=== PATIENT | female | born 1935 | race Caucasian/White ===

== ENCOUNTER 2016-10-10 14:36 | Observation (INO) | payer MEDICARE ==
[~2016-10-10] VITALS: Ht 160 cm; Wt 87.5 kg
--- NOTE | 2016-10-10 16:47 | DIAGNOSTIC IMAGING REPORT ---
PROCEDURE: XR CHEST 2 VIEW INDICATION: COUGH TECHNIQUE: PA and lateral view. COMPARISON: None. FINDINGS: Lungs are clear. Cardiovascular structures are normal. Bony thorax is unremarkable. IMPRESSION: 1. Negative chest.
--- NOTE | 2016-10-10 18:26 | DIAGNOSTIC IMAGING REPORT ---
PROCEDURE: CT HEAD WITHOUT CONTRAST INDICATION: HEADACHE, initial encounter TECHNIQUE: Noncontrast axial images with sagittal and coronal reformations. COMPARISON: None. FINDINGS: Mild cortical atrophy and normal ventricular system. Moderate white matter chronic ischemic changes. No evidence of acute intracranial process. Visualized mastoids and sinuses are clear. IMPRESSION: 1. No acute intracranial abnormality 2. Mild atrophy with moderate white matter chronic ischemic changes 3. Findings discussed with Flaco GUSTAFSON at 06:24 p.m., [facility] Time
--- NOTE | 2016-10-10 19:06 | ED ORDER SUMMARY ---
..... Patient: CHRISTINA JONES OrderSheet [facility] VisitID: [id number] [place] [address] 81y, F Registration Date/Time: 10/10/2016 ORDER SHEET Weight: 84.3 kg (stated) Allergies: Codeine GENERAL ORDERS: Chest 2V Urgent (14:47 10/10/2016 EKoroleva P.A.-C) (Ack 14:56 TBergley) (15:26 JSimbeck R.N.) Rapid Influenza Screen (Nasal Pharyngeal) (n) Urgent (14:48 10/10/2016 EKoroleva P.A.-C) (Ack 14:56 TBergley) (15:15 JSimbeck R.N.) UA-Culture if indicated Urgent (14:48 10/10/2016 EKoroleva P.A.-C) (Ack 14:56 TBergley) (17:12 omanelli R.N.) Cardiac Panel Stat (14:48 10/10/2016 EKoroleva P.A.-C) (Ack 14:56 TBergley) (15:15 JSimbeck R.N.) PTT Urgent (14:48 10/10/2016 EKoroleva P.A.-C) (Ack 14:56 TBergley) (15:15 JSimbeck R.N.) PT with INR Urgent (14:48 10/10/2016 EKoroleva P.A.-C) (Ack 14:56 TBergley) (15:15 JSimbeck R.N.) EKG - ER Stat (14:48 10/10/2016 EKoroleva P.A.-C) (Ack 14:56 TBergley) (15:11 JSimbeck R.N.) Vitals (16:31 10/10/2016 EKoroleva P.A.-C) (Ack 16:48 TBergley) (16:56 JSimbeck R.N.) Vitals (16:55 10/10/2016 EKoroleva P.A.-C) (16:56 JSimbeck R.N.) Vitals - Orthostatic (17:36 10/10/2016 EKoroleva P.A.-C) (Ack 17:47 TBergley) (18:13 GEORGEimbeck R.N.) CT Head wo Cont Urgent (17:46 10/10/2016 EKoroleva P.A.-C) (Ack 17:47 TBergley) (18:24 Fozia) PCT (Procalcitonin) Urgent (19:10 10/10/2016 EKoroleva P.A.-C) (Ack 19:13 TBergley) (20:12 TBergley) MEDICATION ORDERS: IV FLUIDS: IV NS : initial bolus 500 mL (1000 mL/hr), then 100 mL/hr for X1 (NOW); Ricardo (14:47 10/10/2016 EKoroleva P.A.-C) (15:26 GEORGEimbeck R.N.) Zofran IV 4 mg (NOW) (14:47 10/10/2016 EKoroleva P.A.-C) (15:26 GEORGEimbeck R.N.) ORDER SHEET NOTES: [Electronically signed by Consuelo BeASameer-Kimberly (21:49 10/10/2016)] [Electronically signed by Oliverio Guerra R.N. (04:15 10/11/2016)] [Electronically locked/signed by Oliverio Guerra R.N. (04:15 10/11/2016)]
--- NOTE | 2016-10-10 19:06 | ED ORDER SUMMARY ---
..... Patient: CHRISTINA JONES OrderSheet [facility] VisitID: [id number] [place] [address] 81y, F Registration Date/Time: 10/10/2016 ORDER SHEET Weight: 84.3 kg (stated) Allergies: Codeine GENERAL ORDERS: Chest 2V Urgent (14:47 10/10/2016 EKoroleva P.A.-C) (Ack 14:56 TBergley) (15:26 JSimbeck R.N.) Rapid Influenza Screen (Nasal Pharyngeal) (n) Urgent (14:48 10/10/2016 EKoroleva P.A.-C) (Ack 14:56 TBergley) (15:15 JSimbeck R.N.) UA-Culture if indicated Urgent (14:48 10/10/2016 EKoroleva P.A.-C) (Ack 14:56 TBergley) (17:12 omanelli R.N.) Cardiac Panel Stat (14:48 10/10/2016 EKoroleva P.A.-C) (Ack 14:56 TBergley) (15:15 JSimbeck R.N.) PTT Urgent (14:48 10/10/2016 EKoroleva P.A.-C) (Ack 14:56 TBergley) (15:15 JSimbeck R.N.) PT with INR Urgent (14:48 10/10/2016 EKoroleva P.A.-C) (Ack 14:56 TBergley) (15:15 JSimbeck R.N.) EKG - ER Stat (14:48 10/10/2016 EKoroleva P.A.-C) (Ack 14:56 TBergley) (15:11 JSimbeck R.N.) Vitals (16:31 10/10/2016 EKoroleva P.A.-C) (Ack 16:48 TBergley) (16:56 JSimbeck R.N.) Vitals (16:55 10/10/2016 EKoroleva P.A.-C) (16:56 JSimbeck R.N.) Vitals - Orthostatic (17:36 10/10/2016 EKoroleva P.A.-C) (Ack 17:47 TBergley) (18:13 GEORGEimbeck R.N.) CT Head wo Cont Urgent (17:46 10/10/2016 EKoroleva P.A.-C) (Ack 17:47 TBergley) (18:24 Fozia) PCT (Procalcitonin) Urgent (19:10 10/10/2016 EKoroleva P.A.-C) (Ack 19:13 TBergley) (20:12 TBergley) MEDICATION ORDERS: IV FLUIDS: IV NS : initial bolus 500 mL (1000 mL/hr), then 100 mL/hr for X1 (NOW); Ricardo (14:47 10/10/2016 EKoroleva P.A.-C) (15:26 GEORGEimbeck R.N.) Zofran IV 4 mg (NOW) (14:47 10/10/2016 EKoroleva P.A.-C) (15:26 GEORGEimbeck R.N.) ORDER SHEET NOTES: [Electronically signed by Consuelo BeASameer-Kimberly (21:49 10/10/2016)] [Electronically signed by Oliverio Guerra R.N. (04:15 10/11/2016)] [Electronically locked/signed by Oliverio Guerra R.N. (04:15 10/11/2016)]
--- NOTE | 2016-10-10 19:06 | ED NURSING NOTES ---
Clinical Report - Nurses [facility] [place] [address] 10/10/2016 14:35 Patient: CHRISTINA JONES TRIAGE Triage time 14:41. Acuity: LEVEL 3. 14:44 10/10/16. SEPSIS SCREEN: Sepsis Screen. Negative (no infection suspected/documented). CARLOS COMA SCORE: [place] Coma Scale: 14- eyes open spontaneously (4); best verbal response- disoriented (4); best motor response- obeys commands (6). (disoriented to time). --14:50 Rajesh Cruz R.N. 14:38 10/10/16. BP: 119/56. HR: 98. RR: 20. O2 saturation: 93% on room air. Temp: 98.8 F. Pain level now: 11/27. --14:50 Rajesh Cruz R.N. Chief Complaint: (NVD weakness). --21:18 Oliverio Guerra R.N. Weight: 84.3 kg stated. Height/Length: 63 inches Per Patient. BMI: 32.9. --14:46 Rajesh Cruz R.N. Medications Lisinopril Oral. Sertraline HCl Oral. --14:39 Rajesh Cruz R.N. Allergies Codeine. --14:39 Rajesh Cruz R.N. History Arrived by EMS. Historian: patient. Onset. (Onset yesterday: vomiting, fever, generalized pain, bilat seymour pain, poor PO intake, weakness.). ( Pt is a poor historian.). She has had weakness. Reports muscle aches. ( Headache, generalized back pain (chronic)). 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 PAST MEDICAL HX: ( Uses O2 @3L at night.). SOCIAL HX: Former smoker, end date 2006. ABUSE ASSESSMENT: No report of abuse. --14:50 Rajesh Cruz R.N. PROBLEMS: Contusion. COPD - Chronic Obstructive Pulmonary Disease. Hypertension. --14:39 Rajesh Cruz R.N. Interventions ID band on patient. To treatment room. --14:50 Rajesh Cruz R.N. NURSING PROGRESS NOTES EKG time: (1500). EKG was ordered, performed by a tech and shown to the ED physician. --15:02 Madai Richardson 15:10 10/10/2016 Site #1 started via IV in the left antecubital space with an 18g angiocath, with aseptic technique and good blood return; two attempts. Blood drawn: rainbow set. Labeled in the presence of the patient and sent to the lab. Saline lock flushed with 10 mL saline. --15:16 Rajesh Cruz R.N. 15:20 10/10/2016 Zofran (Ondansetron HCl) IVP 4 mg given over 1 minute(s) via site #1. Allergies verified and confirmed 5 rights. IV patency established. IV site checked: no pain, redness, or swelling. IV flushed thoroughly pre- and post-medication administration. IVP given by RN. --15:26 Rajesh Cruz R.N. 15:20 10/10/2016 Started bag #1 1000 mL IV Fluids IV NS (Saline); bolus of 500 mL over 30 minute(s) via site #1 via IV pump. Allergies verified and confirmed 5 rights. IV patency established. IV site checked: no pain, redness, or swelling. IV flushed thoroughly pre- and post-medication administration. --15:26 Rajesh Cruz R.N. 15:25. Patient transported to radiology by stretcher with tech. --15:34 Rajesh Cruz R.N. 16:50 10/10/16. BP: 132/82. HR: 101. RR: 20. O2 saturation: 93% on room air. Pain level now: 11/27. --16:55 Rajesh Cruz R.N. 16:50 10/10/2016 IV Fluids IV NS via IV site #1 Rate Changed: bag #1 decreased to 100 mL/hr via IV pump. IV patency established. IV site checked: no pain, redness, or swelling. IV flushed thoroughly. Confirmed 5 Rights (Bolus complete). --16:55 Rajesh Cruz R.N. 17:15. Head of bed elevated. Reassurance given. ( Assisted pt to BSC. she required max assist with 2 to go to the BSC and back to bed. Urine is cloudy. Pt also had a small BM. She c/o being dizzy when she sat up in bed prior to standing. Discussed with PA.). Call light placed in reach. Side rails up x 2. Bed placed in lowest position. Brakes of bed on. --17:21 Rajesh Cruz R.N. 17:20. ( Ice water provided to pt.). --17:24 Rajesh Cruz R.N. 17:59 10/10/16. BP: 135/70 (large adult cuff) taken on the right arm, while lying. HR: 98. --18:04 Madai Richardson 18:04 10/10/16. BP: 140/68 (large adult cuff) taken on the right arm, while sitting. --18:04 Madai Richardson 18:04 10/10/16. BP: 132/72 (large adult cuff) taken on the right arm, while standing. HR: 109. --18:05 Madai Richardson 18:05. Patient transported to CT by stretcher with tech. --18:11 Rajesh Cruz R.N. 17:50 10/10/2016 IV Fluids IV NS via IV site #1 Rate Changed: bag #1 decreased to 50 mL/hr via IV pump. IV patency established. IV site checked: no pain, redness, or swelling. IV flushed thoroughly. Confirmed 5 Rights (100ml/hr complete.). --18:13 Rajesh Cruz R.N. 18:25. Reassurance given. The patient reports no complaints and she is resting quietly. Patient returned from CT by stretcher with tech. Call light placed in reach. Side rails up x 2. Bed placed in lowest position. Brakes of bed on. --18:28 Rajesh Cruz R.N. ( Report received from SARAHY noel). --19:17 Oliverio Guerra R.N. 19:10. Care transferred and report given (to SARAHY Duron). --19:23 Rajesh Cruz R.N. DISPOSITION / DISCHARGE 20:56 10/10/16. BP: 132/73. HR: 89. RR: 16. O2 saturation: 94%. Temp: 98.4 F. Pain level now 0/10. --20:57 Oliverio Guerra R.N. Departure time: 2110. Report was given to a nurse via a phone call. Report included patient's care, treatment, medications, reviewed medication reconcilliation, and condition (including any recent changes or anticipated changes). All questions were answered. Report was acknowledged. Patient has no belongings. --21:12 Oliverio Guerra R.N. Locked/Released at 10/11/2016 4:15 by Oliverio Guerra R.N.
--- NOTE | 2016-10-10 19:06 | ED CLINICAL REPORT ---
Clinical Report - Physicians/Mid Levels [facility] [address] [place] [address] 10/10/2016 14:35 Patient: CHRISTINA JONES Time Seen: 14:49 Oct 10 2016. Arrived- By ambulance. Historian- EMS personnel. HISTORY OF PRESENT ILLNESS Chief Complaint: MUSCLE ACHES weakness/ fatigue. This started yesterday and is still present. The patient has had loss of appetite and weakness. Denies sleep problem. No muscle aches. (over the last 24 hours patient reports generalized weakness, emesis. Worsening of her chronic pain, back pain.). Similar symptoms previously: Recent medical care: Not recently seen/assessed. REVIEW OF SYSTEMS No fever, sore throat, sinus drainage, nausea or diarrhea. No difficulty with urination or headache. She has had chills. No difficulty with ambulation. All systems otherwise negative, except as recorded above. PAST HISTORY COPD, on home o2 at night. Lives in independent living. SOCIAL HISTORY Former smoker (quit 10 years prior). ADDITIONAL NOTES The nursing notes have been reviewed. PHYSICAL EXAM Vital Signs: 10/10/2016 14:38 BP: 119/56. HR: 98. RR: 20. O2 saturation: 93%. Temp: 98.8 F. Pain level now: 3/10. Appearance: Alert. Does not appear to be anxious. Eyes: Eyes normal inspection. ENT: Ears normal. Neck: Normal inspection. No carotid bruit or lymphadenopathy. CVS: Normal heart rate and rhythm. Heart sounds normal. No extra heart sounds. PMI not displaced laterally. Respiratory: No respiratory distress. Breath sounds normal. No decreased air movement. Abdomen: No visible injury. Soft. Skin: Skin warm. Normal skin color. Neuro: The patient is disoriented to time. Mood/affect normal. Speech normal. LABS, X-RAYS, AND EKG EKG: EKG time: (1500). No acute process. No acute ischemia. Normal EKG. Rate: 97. Normal QRS complex. Normal axis. Normal ST and T waves and QT. Prior EKG unavailable. The study has been interpreted contemporaneously. The EKG appears to be a good tracing. Chest X-ray: (IMPRESSION: 1. Negative chest. Electronically Final signed by:Peter Allen MD 10/10/2016 4:47:09 PM). CT Head: (IMPRESSION: 1. Negative chest. Electronically Final signed by:Peter Allen MD 10/10/2016 6:27:26 PM). Laboratory Tests: UA-Culture if indicated: (CONSUELO: 10/10/2016 17:05) ( [facility] 10/10/2016 17:38) Final results Test Result Flag Units (Reference) URINE COLOR YELLOW URINE APPEARANCE CLOUDY URINE GLUCOSE NEGATIVE (NEGATIVE) URINE BILIRUBIN NEGATIVE (NEGATIVE) URINE KETONE NEGATIVE (NEGATIVE) URINE SPECIFIC GRAVITY >= 1.030 (1.010-1.030) URINE PH 6.0 (5.0-8.0) URINE PROTEIN 2+ (NEGATIVE) URINE UROBILINOGEN 1.0 EU/dL (0.2-1.0) URINE NITRITE NEGATIVE (NEGATIVE) URINE BLOOD TRACE-INTACT (NEGATIVE) URINE LEUK ESTERASE NEGATIVE (NEGATIVE) URINE RBC 1-3 rbc/hpf (0-1) URINE WBC 3-5 wbc/hpf (0-1) URINE EPITHELIAL CELLS 3-5 EPI/hpf (0-5) URINE BACTERIA FEW (1+) (NONE SEEN) URINE COMMENT CULT NOT INDICATED AMORPHOUS CRYSTALS 2+URINE CULTURES ARE SET-UP BASED ON THE FOLLOWING CRITERIA:POSITIVE NITRITEPOSITIVE LEUKOCYTE ESTERASEGREATER THAN 10 WHITE BLOOD CELLSMODERATE (2+) OR GREATER BACTERIA CBC w Diff: (CONSUELO: 10/10/2016 15:10) ( [facility] 10/10/2016 16:09) Final results Test Result Flag Units (Reference) WHITE BLOOD COUNT 12.4 H K/uL (4.5-11.5) RED BLOOD COUNT 4.93 M/uL (4.00-5.20) HEMOGLOBIN 15.0 gm/dL (12.0-16.0) HEMATOCRIT 45.9 % (36.0-46.0) MEAN CELL VOLUME 93 fL (80-100) MEAN CORPUSCULAR HGB 30 pg (26-34) MEAN CORPUSCULAR HGB CONC 33 g/dL (31-37) RED CELL DISTRIBUTION WIDTH 14.1 % (11.6-14.8) PLATELET COUNT 190 K/uL (150-400) NEUTROPHIL % 85.7 H % (50-75) LYMPH % 5.7 L % (25-40) MONO % 8.5 % (3-14) EOSINOPHIL % 0.1 % (0-4) BASOPHIL % 0 % (0-2) PT with INR: (CONSUELO: 10/10/2016 15:10) ( [facility] 10/10/2016 16:14) Final results Test Result Flag Units (Reference) INR 1.1 (0.8-1.2) Low Intensity Therapy: INR 1.5-2.0 PT range 18.5-23.1Mod.Intensity Therapy: INR 2.0-3.0 PT range 23.1-31.5High Intensity Therapy: INR 2.5-3.5 PT range 27.4-35.5High Intensity Therapy 2: INR 3.0-4.0 PT range 31.5-39.3 APTT 33 SECONDS (24-34) CHEM 13 PANEL: (CONSUELO: 10/10/2016 15:10) ( [facility] 10/10/2016 16:23) Final results Test Result Flag Units (Reference) GLUCOSE 134 H mg/dL (70-110) BUN 31 H mg/dL (7-18) CREATININE 0.8 mg/dL (0.6-1.3) Estimated GFR >60 mL/min Estimated GFR- >60 mL/min Note: Persistent reduction over 3 months in eGFR<60 mL/min/1.73 m2 defines CKD. Patients with eGFR values>=60 mL/min/1.73 m2 may also have CKD if evidence ofpersistent proteinuria. Additional information may be foundat www.kidney.org. SODIUM 142 mmol/L (136-145) POTASSIUM 3.9 mmol/L (3.5-5.1) CHLORIDE 106 mmol/L (98-107) CARBON DIOXIDE 31 mmol/L (21-32) CALCIUM 8.9 mg/dL (8.5-10.1) TOTAL PROTEIN 6.8 g/dL (6.4-8.2) ALBUMIN 3.4 g/dL (3.3-5.0) BILIRUBIN, TOTAL 0.8 mg/dL (0.0-1.0) ALKALINE PHOSPHATASE 78 U/L (46-116) AST (SGOT) 16 U/L (15-37) ALT (SGPT) 22 U/L (12-78) MAGNESIUM 1.9 mg/dL (1.8-2.4) CPK 38 U/L (24-260) TROPONIN I <0.05 ng/mL (0.00-1.5) TROPONIN REFERENCE RANGE:<0.1 NEGATIVE0.1-1.5 INDETERMINANT>1.5 POSITIVE Rapid Influenza Screen: (CONSUELO: 10/10/2016 15:10) ( [facility] 10/10/2016 16:26) Final results SPECIMEN DESCRIPTION: N Test Result Flag Units (Reference) RAPID INFLUENZA SCREEN DATE: 10/10/16 INFLUENZA A: NEGATIVE SCREEN FOR INFLUENZA A INFLUENZA B: NEGATIVE SCREEN FOR INFLUENZA B . PROGRESS AND PROCEDURES Course of Care: It is-year-old female, who is a very poor historian, from independent living at [facility]. patient in the ER has minimal complaints. Requesting water, such was given to her after her workup, which included an EKG chest x-ray, CT head after she was disoriented to time. Such were unremarkable. CBC and CMP unremarkable. Troponin unremarkable. Urinalysis is unremarkable, although signs of dehydration obvious signs of infection. Influenza negative. No clear source of slight leukocytosis as noted the CBC. Patient with emesis prior to arrival as noted by medics, otherwise her abdomen is soft non tender. No diarrhea in the ER. No recent antibiotics or hospitalizations. Sheiis usually able to ambulate, however in they are unable to stand, and difficulty sitting despite assistance of 2 staff members. At this time she isunable to go home to [place], as she is without any assistance there, and after calling them they're unable to provide her with any further assistance through the weekend. Decision was made for admission, after discussion with Dr. Ellison. Patient case discussed with Dr. Piedra in, who saw the patient in the ER at 1920. Pt admitted. 10/10/2016 18:04 BP: 132/72. HR: 109. 10/10/2016 18:04 BP: 140/68. 10/10/2016 17:59 BP: 135/70. HR: 98. 10/10/2016 16:50 BP: 132/82. HR: 101. RR: 20. O2 saturation: 93%. Pain level now: 3/10. Patient is stable. Physical exam findings are improved. Symptoms better. Patient/family counseled. Disposition: Admitted. CLINICAL IMPRESSION Weakness Dehydration Emesis. (Electronically signed by Consuelo Be P.A.-C 10/10/2016 21:49)
--- NOTE | 2016-10-10 21:32 | HISTORY AND PHYSICAL ---
ADMITTED: 10/10/2016 CHIEF COMPLAINT: 1. Weakness HISTORY OF PRESENT ILLNESS: An 81-year-old female transported to [facility] Emergency Department by EMS after a second call to the facility for weakness, inability to stand or ambulate. This is a marked change in behavior as she was in her normal state of health prior to this, ambulating independently to and from the dining room, and socially interacting with others including [id number], who spoke to her on the night prior to admission when she was normal and conversant. She lives in assisted living. She has had some vomiting both in the night prior to admission and on the night of admission. The paramedics apparently witnessed the vomiting at the facility, though there has been no further vomiting since arrival in the emergency department. There has been history of weakness, chills, fever, and headaches. The patient denies all of these problems at this time. Currently, the patient admits to low back pain, which she says is chronic, but somewhat worse tonight. It did improve with change in position on the gurney in the emergency department. MEDICAL/SURGICAL HISTORY: Past medical history remarkable for chronic back pain, status post laminectomy; macular degeneration; chronic nephritis. History is obtained for this, as well as other history elements, both from the record obtained in the ED and also from the [id number], Jo Gillespie. The patient's brother is the power of product support analyst ; however, he is unable to talk on the phone and the [id number], therefore, relays history. Past surgical history: History of laminectomy, eye surgery, and hysterectomy. MEDICATIONS: 1. The patient is on lisinopril, dosage unknown. 2. An antidepressant. Apparently she had been on Sertraline. This was stopped approximately 1 month ago as it seemed to cause fatigue and confusion. She since that time has been on a new antidepressant but the dosage and name are unknown. Family will bring in the medications in the morning. ALLERGIES: 1. SOCIAL HISTORY: Retired, female living in assisted living at [facility]. 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 Smoking: None. Quit approximately 10 years ago. Alcohol: Positive, "but she won't admit to it." She apparently drank 1-2 drinks a day in the past, but recently with forgetfulness she sometimes drinks more when it is available to her. The family tries to limit the amount of alcohol she has access to in the assisted living facility, but "occasionally, infrequently , she drinks too much." The patient lives in assisted living at [facility]. The [id number] reports that Robert is "inundated" with viral syndrome causing weakness and vomiting. Apparently, one other member has been hospitalized for this. FAMILY HISTORY: Brother is 74 and healthy, except hard of hearing. Father at age 87 of unknown cause. Mother at age 67 of COPD. Some cousins have diabetes. There is no cancer in the family as far as Ms. Gillespie is aware. REVIEW OF SYSTEMS: Constitutional: The patient denies URI symptoms, sore throat , cough, or congestion. Neurological: She denies neurologic symptoms including headache (though she did complain of headache early in her ED visit). She also denies vision change or history of seizures. The patient does admit to forgetfulness and that is apparently primarily the reason why she now lives in assisted living. Respiratory: The patient cough, shortness of breath, or dyspnea on exertion. Cardiovascular: The patient denies chest pain, palpitations, or paroxysmal nocturnal dyspnea. Gastrointestinal: The patient does admit to having had some vomiting, although she does not recall vomiting today. She denies melena, diarrhea, constipation, or bright red blood per rectum. Genitourinary: The patient denies dysuria, hematuria, or frequency. PHYSICAL EXAMINATION: GENERAL: Well-developed, well-nourished female in no acute distress. VITAL SIGNS: Blood pressure 119/56, heart rate 98, respirations 20, SaO2 93% on room air, temperature 98.8. HEENT: Clear. NECK: Supple without adenopathy or thyromegaly. CHEST: Clear to auscultation and percussion. HEART: Regular rate and rhythm without murmur. ABDOMEN: Positive bowel sounds. Soft, nontender, without hepatosplenomegaly or masses. BACK: Straight without CVA tenderness. EXTREMITIES: Without cyanosis, clubbing, or edema. NEUROLOGIC: Grossly intact and symmetric with no focal signs. The patient's short-term memory is poor. GENITAL: Deferred. RECTAL: Deferred. BREASTS: Normal without masses. SKIN: Unremarkable. LAB/IMAGING: Urinalysis reveals specific gravity 1.030, pH 6.0, protein 2+, urobilinogen 1.0, leukocyte esterase negative, nitrite negative, urine blood trace intact. WBC 12.4, hemoglobin 15.0, hematocrit 45.9, platelets 190. INR 1.1. Glucose 134 , BUN 31, creatinine 0.8, sodium 142, potassium 3.9, chloride 106, bicarbonate 31. Total bilirubin 0.8, alkaline phosphatase 78, AST 16, ALT 22. Magnesium 1.9. CPK 38. Troponin less than 0.05. Rapid flu screen was obtained and is negative for influenza A or influenza B. Chest x-ray benign with no acute changes. CT of the head benign with no acute changes. EKG: Normal sinus rhythm without acute changes. IMPRESSION: 1. Viral syndrome, etiology unclear, probable viral gastroenteritis with mild dehydration. 2. Chronic low back pain, status post laminectomy. 3. History of hypertension, controlled. 4. History of depression, controlled. 5. History of nephritis. PLAN: Admit to [facility]. We will monitor vital signs and proceed with mild hydration and advance diet as tolerated. Anticipate gradual resolution. We will also check urine toxicology screen because of history of alcohol use. DNR status is ordered as this has been reported to be the patient's previously requested stance. This is confirmed by [id number] and brother through the [id number].
--- NOTE | 2016-10-10 21:32 | HISTORY AND PHYSICAL ---
ADMITTED: 10/10/2016 CHIEF COMPLAINT: 1. Weakness HISTORY OF PRESENT ILLNESS: An 81-year-old female transported to [facility] Emergency Department by EMS after a second call to the facility for weakness, inability to stand or ambulate. This is a marked change in behavior as she was in her normal state of health prior to this, ambulating independently to and from the dining room, and socially interacting with others including [id number], who spoke to her on the night prior to admission when she was normal and conversant. She lives in assisted living. She has had some vomiting both in the night prior to admission and on the night of admission. The paramedics apparently witnessed the vomiting at the facility, though there has been no further vomiting since arrival in the emergency department. There has been history of weakness, chills, fever, and headaches. The patient denies all of these problems at this time. Currently, the patient admits to low back pain, which she says is chronic, but somewhat worse tonight. It did improve with change in position on the gurney in the emergency department. MEDICAL/SURGICAL HISTORY: Past medical history remarkable for chronic back pain, status post laminectomy; macular degeneration; chronic nephritis. History is obtained for this, as well as other history elements, both from the record obtained in the ED and also from the [id number], Jo Gillespie. The patient's brother is the power of staff attorney ; however, he is unable to talk on the phone and the [id number], therefore, relays history. Past surgical history: History of laminectomy, eye surgery, and hysterectomy. MEDICATIONS: 1. The patient is on lisinopril, dosage unknown. 2. An antidepressant. Apparently she had been on Sertraline. This was stopped approximately 1 month ago as it seemed to cause fatigue and confusion. She since that time has been on a new antidepressant but the dosage and name are unknown. Family will bring in the medications in the morning. ALLERGIES: 1. SOCIAL HISTORY: Retired, female living in assisted living at [facility]. 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 Smoking: None. Quit approximately 10 years ago. Alcohol: Positive, "but she won't admit to it." She apparently drank 1-2 drinks a day in the past, but recently with forgetfulness she sometimes drinks more when it is available to her. The family tries to limit the amount of alcohol she has access to in the assisted living facility, but "occasionally, infrequently , she drinks too much." The patient lives in assisted living at [facility]. The rqrham-ik-yxo reports that Robert is "inundated" with viral syndrome causing weakness and vomiting. Apparently, one other member has been hospitalized for this. FAMILY HISTORY: Brother is 74 and healthy, except hard of hearing. Father at age 87 of unknown cause. Mother at age 67 of COPD. Some cousins have diabetes. There is no cancer in the family as far as Ms. Gillespie is aware. REVIEW OF SYSTEMS: Constitutional: The patient denies URI symptoms, sore throat , cough, or congestion. Neurological: She denies neurologic symptoms including headache (though she did complain of headache early in her ED visit). She also denies vision change or history of seizures. The patient does admit to forgetfulness and that is apparently primarily the reason why she now lives in assisted living. Respiratory: The patient cough, shortness of breath, or dyspnea on exertion. Cardiovascular: The patient denies chest pain, palpitations, or paroxysmal nocturnal dyspnea. Gastrointestinal: The patient does admit to having had some vomiting, although she does not recall vomiting today. She denies melena, diarrhea, constipation, or bright red blood per rectum. Genitourinary: The patient denies dysuria, hematuria, or frequency. PHYSICAL EXAMINATION: GENERAL: Well-developed, well-nourished female in no acute distress. VITAL SIGNS: Blood pressure 119/56, heart rate 98, respirations 20, SaO2 93% on room air, temperature 98.8. HEENT: Clear. NECK: Supple without adenopathy or thyromegaly. CHEST: Clear to auscultation and percussion. HEART: Regular rate and rhythm without murmur. ABDOMEN: Positive bowel sounds. Soft, nontender, without hepatosplenomegaly or masses. BACK: Straight without CVA tenderness. EXTREMITIES: Without cyanosis, clubbing, or edema. NEUROLOGIC: Grossly intact and symmetric with no focal signs. The patient's short-term memory is poor. GENITAL: Deferred. RECTAL: Deferred. BREASTS: Normal without masses. SKIN: Unremarkable. LAB/IMAGING: Urinalysis reveals specific gravity 1.030, pH 6.0, protein 2+, urobilinogen 1.0, leukocyte esterase negative, nitrite negative, urine blood trace intact. WBC 12.4, hemoglobin 15.0, hematocrit 45.9, platelets 190. INR 1.1. Glucose 134 , BUN 31, creatinine 0.8, sodium 142, potassium 3.9, chloride 106, bicarbonate 31. Total bilirubin 0.8, alkaline phosphatase 78, AST 16, ALT 22. Magnesium 1.9. CPK 38. Troponin less than 0.05. Rapid flu screen was obtained and is negative for influenza A or influenza B. Chest x-ray benign with no acute changes. CT of the head benign with no acute changes. EKG: Normal sinus rhythm without acute changes. IMPRESSION: 1. Viral syndrome, etiology unclear, probable viral gastroenteritis with mild dehydration. 2. Chronic low back pain, status post laminectomy. 3. History of hypertension, controlled. 4. History of depression, controlled. 5. History of nephritis. PLAN: Admit to [facility]. We will monitor vital signs and proceed with mild hydration and advance diet as tolerated. Anticipate gradual resolution. We will also check urine toxicology screen because of history of alcohol use. DNR status is ordered as this has been reported to be the patient's previously requested stance. This is confirmed by kuisbk-st-cei and brother through the rzfrks-zh-upd.
[2016-10-10 21:35] VITALS: BP 155/95
[2016-10-11 02:51] VITALS: BP 152/91
--- NOTE | 2016-10-11 04:16 | ED DISCHARGE INSTRUCTIONS ---
Patient: CHRISTINA JONES General Instructions [facility] VisitID: [id number] [address] [place] [address] 81y, F Registration Date/Time: 10/10/2016 Weakness Dehydration Emesis. (Electronically signed by Consuelo Be P.A.-C 10/10/2016 21:49)
--- NOTE | 2016-10-11 04:16 | ED MED RECONCILIATION SUMMARY ---
Patient: CHRISTINA JONES Medication Reconciliation Report [facility] VisitID: [id number] [address] [place] [address] 81y, F Registration Date/Time: 10/10/2016 Weight: 84.3 kg Height/Length: 63 in. BMI: 32.9 ALLERGIES: Codeine The patient's Home Medications are listed below: THE FOLLOWING MEDICATIONS NEED TO BE RECONCILED: Lisinopril Oral Sertraline HCl Oral The source(s) of the original Home Medication information: Not obtained. The following Medications were given to the patient in the Emergency Department: Zofran [IVP] IVP 4 mg, administered: 10/10/2016 3:20:00 PM IV NS IV Fluids bolus 500 mL over 30 minute(s), administered: 10/10/2016 3:20:00 PM The following Medications were prescribed to the patient: None.
--- NOTE | 2016-10-11 04:16 | ED MAR SUMMARY ---
..... Medication Administration Record [facility] [address] [place] [address] Patient: CHRISTINA JONES Visit ID: [id number] 81y, F Weight: 84.3 kg Height/Length: 63 in BMI: 32.9 ALLERGIES: Codeine Start 15:10/10/2016 Rajesh Cruz R.N. Medication Administered: IV NS (SALINE), Dose: IV Fluids, Bolus: 500 mL over 30 minute(s), Dispensed: 1000 mL bag, Site: #1 left AC. Medication Ordered: IV NS : initial bolus 500 mL (1000 mL/hr), then 100 mL/hr for X1 (NOW); Ricardo. Given 15:10/10/2016 Rajesh Cruz R.N. Medication Administered: ZOFRAN [IVP] (ONDANSETRON HCL), Dose: 4 mg IVP over 1 minute(s), Site: #1 left AC. Medication Ordered: Zofran IV 4 mg (NOW).
--- NOTE | 2016-10-11 04:16 | ED MAR SUMMARY ---
..... Medication Administration Record [facility] [address] [place] [address] Patient: CHRISTINA JONES Visit ID: [id number] 81y, F Weight: 84.3 kg Height/Length: 63 in BMI: 32.9 ALLERGIES: Codeine Start 15:10/10/2016 Rajesh Cruz R.N. Medication Administered: IV NS (SALINE), Dose: IV Fluids, Bolus: 500 mL over 30 minute(s), Dispensed: 1000 mL bag, Site: #1 left AC. Medication Ordered: IV NS : initial bolus 500 mL (1000 mL/hr), then 100 mL/hr for X1 (NOW); Ricardo. Given 15:10/10/2016 Rajesh Cruz R.N. Medication Administered: ZOFRAN [IVP] (ONDANSETRON HCL), Dose: 4 mg IVP over 1 minute(s), Site: #1 left AC. Medication Ordered: Zofran IV 4 mg (NOW).
--- NOTE | 2016-10-11 04:16 | ED DISCHARGE INSTRUCTIONS ---
Patient: CHRISTINA JONES General Instructions [facility] VisitID: [id number] [address] [place] [address] 81y, F Registration Date/Time: 10/10/2016 Weakness Dehydration Emesis. (Electronically signed by Consuelo Be P.A.-C 10/10/2016 21:49)
--- NOTE | 2016-10-11 04:16 | ED MED RECONCILIATION SUMMARY ---
Patient: CHRISTINA JONES Medication Reconciliation Report [facility] VisitID: [id number] [address] [place] [address] 81y, F Registration Date/Time: 10/10/2016 Weight: 84.3 kg Height/Length: 63 in. BMI: 32.9 ALLERGIES: Codeine The patient's Home Medications are listed below: THE FOLLOWING MEDICATIONS NEED TO BE RECONCILED: Lisinopril Oral Sertraline HCl Oral The source(s) of the original Home Medication information: Not obtained. The following Medications were given to the patient in the Emergency Department: Zofran [IVP] IVP 4 mg, administered: 10/10/2016 3:20:00 PM IV NS IV Fluids bolus 500 mL over 30 minute(s), administered: 10/10/2016 3:20:00 PM The following Medications were prescribed to the patient: None.
--- NOTE | 2016-10-11 07:45 | Progress Note ---
Subjective General Note Date: October 11, 2016 Admission Date: October 10, 2016 Hospital Day: 2 PCP: Mary JACKMAN Status: Observation Advanced Directive: NO CODE Room: 309-A Brief History: The patient is an 81-year-old white female with a significant past medical history of chronic back pain, macular degeneration, nephritis, hypertension, depression, who presented to [facility] emergency department secondary to a history of nausea, vomiting, and weakness. [facility] ER evaluation was consistent with probable viral gastroenteritis with associated nausea vomiting and dehydration causing weakness and inability to walk. Secondary to the above, the patient was admitted by Shawn Piedra M.D. for further evaluation and treatment. For other history present illness, past medical history, family history, social history, review of systems, and admission physical examination please see the patient's history and physical examination and ER visit note in the patient's medical record. Subjective: The patient states she is doing well today. No nausea or vomiting since admission. Taking clear liquids well without problems. He voices no complaints. Patient requests: None Medications and Allergies Medications Current Medications Sig/Kathie Start time Last Medication Dose Route Stop Time Status Admin Lisinopril 5 MG DAILY 10/11 0900 AC PO Pantoprazole Sodium 40 MG DAILY@0600 10/11 0600 AC IV Acetaminophen 1,000 MG Q6H PRN 10/10 2014 AC PO Dextrose/Sodium 1,000 ML ASDIRECTED 10/10 194 AC 10/10 Chloride/Electrolyt IV 2230 Allergies Coded Allergies: Codeine (Mild, ITCHY NOSE 10/10/16) Propoxyphene (From DARVON-N) (Severe, CATATONIC 10/10/16) Physical Exam Vital Signs / I&Os Vital Signs Date Time Temp Pulse Resp B/P Pulse O2 O2 Flow FiO2 Ox Delivery Rate 10/11 0251 98.2 87 16 152/91 100 Nasal 3.0 Cannula 10/10 2224 94 14 100 10/10 2150 Nasal 3.0 Cannula 10/10 2134 98.2 96 20 155/95 90 Room Air I&O 10/11 0000 10/10 1600 10/10 0800 Intake Total 100 Output Total 300 Balance -200 General Appearance Alert, Oriented X3, Cooperative, No acute distress Lungs Clear to auscultation Cardiovascular Regular rate and rhythm, Normal S1 and S2 Abdomen Normal bowel sounds, Soft, No tenderness Extremities No cyanosis, No clubbing Neurological Cranial nerves intact, No lateralizing signs Psych/Mental Status Mental status normal, Mood normal LAB Results Laboratory Tests 10/11 10/10 10/10 10/10 0514 1705 1510 1510 Chemistry Plasma Sodium (136 - 145 mmol/L) 143 142 Plasma Potassium (3.5 - 5.1 mmol/L) 3.8 3.9 Plasma Chloride (98 - 107 mmol/L) 107 106 CO2 (Enzymatic) (21 - 32 mmol/L) 29 31 BUN (7 - 18 mg/dL) 24 31 Creatinine (0.6 - 1.3 mg/dL) 0.7 0.8 Est GFR ( Amer) (mL/min) >60 >60 Est GFR (Non-Af Amer) (mL/min) >60 >60 Glucose (70 - 110 mg/dL) 139 134 Plasma Calcium (8.5 - 10.1 mg/dL) 8.3 8.9 Plasma Magnesium (1.8 - 2.4 mg/dL) 2.0 1.9 Total Bilirubin (0.0 - 1.0 mg/dL) 0.7 0.8 AST (15 - 37 U/L) 15 16 ALT (12 - 78 U/L) 19 22 Alkaline Phosphatase (46 - 116 U/L) 63 78 Creatine Kinase (24 - 260 U/L) 38 Troponin (0.00 - 1.5 ng/mL) <0.05 Total Protein (6.4 - 8.2 g/dL) 5.7 6.8 Albumin (3.3 - 5.0 g/dL) 3.0 3.4 Procalcitonin (0 - 0.5 ng/mL) 0.5 Coagulation INR (0.8 - 1.2) 1.1 APTT (24 - 34 SECONDS) 33 Hematology WBC (4.5 - 11.5 K/uL) 6.3 12.4 RBC (4.00 - 5.20 M/uL) 4.34 4.93 Hgb (12.0 - 16.0 gm/dL) 13.1 15.0 Hct (36.0 - 46.0 %) 40.7 45.9 MCV (80 - 100 fL) 94 93 MCH (26 - 34 pg) 30 30 RDW (11.6 - 14.8 %) 14.5 14.1 Neut % (Auto) (50 - 75 %) 63.8 85.7 Lymph % (Auto) (25 - 40 %) 19.9 5.7 [place] % (Auto) (3 - 14 %) 14.5 8.5 Eos % (Auto) (0 - 4 %) 1.4 0.1 Baso % (Auto) (0 - 2 %) 0.4 0 Plt Count, EDTA (150 - 400 K/uL) 153 190 PUBS MCHC (31 - 37 g/dL) 32 33 Toxicology Urine Opiates Screen (NEGATIVE) NEGATIVE Urine Methadone Screen (NEGATIVE) NEGATIVE Ur Barbiturates Screen (NEGATIVE) NEGATIVE U Amphetamin/Meth Scrn (NEGATIVE) NEGATIVE MDMA (Ecstasy) Screen (NEGATIVE) NEGATIVE U Benzodiazepines Scrn (NEGATIVE) NEGATIVE Urine Cocaine Screen (NEGATIVE) NEGATIVE U Cannabinoids Screen (NEGATIVE) NEGATIVE Urines Urine Color YELLOW Urine Appearance CLOUDY Urine pH (5.0 - 8.0) 6.0 Ur Specific Roy (1.010 - 1.030) >= 1.030 Urine Protein (NEGATIVE) 2+ Urine Ketones (NEGATIVE) NEGATIVE Urine Blood (NEGATIVE) TRACE-INTACT Urine Nitrite (NEGATIVE) NEGATIVE Urine Bilirubin (NEGATIVE) NEGATIVE Urine Urobilinogen (0.2 - 1.0 EU/dL) 1.0 Ur Leukocyte Esterase (NEGATIVE) NEGATIVE Urine RBC (0 - 1 rbc/hpf) 1-3 Urine WBC (0 - 1 wbc/hpf) 3-5 Ur Epithelial Cells (0 - 5 EPI/hpf) 3-5 Urine Bacteria (NONE SEEN) FEW (1+) Urine Glucose (NEGATIVE) NEGATIVE Urine Comment CULT NOT INDICATED Microbiology Date/Time Procedure - Status Source Growth 10/10 1510 Influenza Screen - COMP NASALPHAR Imaging Chest X-Ray IMPRESSION: 1. Negative chest. Dictated by: PAUL SANDOVAL MD D: BALDOMERO;10/10/[address] Scan Head IMPRESSION: 1. No acute intracranial abnormality 2. Mild atrophy with moderate white matter chronic ischemic changes 3. Findings discussed with Flaco GUSTAFSON at 06:24 p.m., [place] Standard Time Dictated by: PAUL SANDOVAL MD D: BALDOMERO;10/10/16 7049 Assessment and Plan Problem List 1. Viral gastroenteritis Plan -Patient presents with findings consistent with viral gastroenteritis -Symptoms improved -No recent nausea or vomiting -Taking clear liquid diet well without problems -Advance diet -Possible discharge this p.m. if patient taking well orally and weakness improved with normal ambulation 2. Weakness Plan -Improved -Ambulating -Patient remains too weak to care for herself at this time. Anticipated discharge in a.m. 3. Dehydration Status Acute Onset Date 10/10/16 Plan -Improved -Continue IV fluid therapy -BUN/creatinine: 24/0.7. -Monitor Current status: Fair, improved Anticipated discharge date: Anticipated discharge in a.m. Anticipated discharge placement: Assisted living-independent section Patient care time: Time spent in chart review, patient interview, physical exam, CPOE, and care documentation: 25 minutes Visit to patient today: 1 Complexity of care: Moderate E&M Codes Rounding: Inpt-Moderate/[id number]
[2016-10-11 07:47] VITALS: BP 155/91
[2016-10-11 11:10] VITALS: BP 175/86
[2016-10-11 15:39] VITALS: BP 154/87
[2016-10-11 19:18] VITALS: BP 160/80
[2016-10-11 22:58] VITALS: BP 178/84
[2016-10-12] MEDS ORDERED: LISINOPRIL10 MG PO (00:09)
[2016-10-12] MEDS ORDERED: CITALOPRAM HYDR20 MG PO (00:10)
[2016-10-12] MEDS ORDERED: VITAMIN D-31000 UNIT PO (00:10)
[2016-10-12 01:29] VITALS: BP 189/96
[2016-10-12 06:41] VITALS: BP 164/84
--- NOTE | 2016-10-12 07:37 | Progress Note ---
Subjective General Note Date: October 12, 2016 Admission Date: October 10, 2016 Hospital Day: 3 PCP: Mary JACKMAN Status: Observation Advanced Directive: NO CODE Room: 309-A Brief History: The patient is an 81-year-old white female with a significant past medical history of chronic back pain, macular degeneration, nephritis, hypertension, depression, who presented to [facility] emergency department secondary to a history of nausea, vomiting, and weakness. [facility] ER evaluation was consistent with probable viral gastroenteritis with associated nausea vomiting and dehydration causing weakness and inability to walk. Secondary to the above, the patient was admitted by Shawn Piedra M.D. for further evaluation and treatment. For other history present illness, past medical history, family history, social history, review of systems, and admission physical examination please see the patient's history and physical examination and ER visit note in the patient's medical record. Subjective: The patient states she is doing well today. No nausea or vomiting since admission. Taking Full liquids well without problems. She voices no complaints. States ready for discharge. Patient requests: None Medications and Allergies Medications Current Medications Sig/Kathie Start time Last Medication Dose Route Stop Time Status Admin Lisinopril 10 MG DAILY 10/12 0900 AC PO Pantoprazole Sodium 40 MG DAILY@0600 10/11 0600 AC 10/12 IV 0511 Acetaminophen 1,000 MG Q6H PRN 10/10 2014 AC PO Dextrose/Sodium 1,000 ML ASDIRECTED 10/10 1944 10/12 Chloride/Electrolyt IV 0655 Allergies Coded Allergies: Codeine (Mild, ITCHY NOSE 10/10/16) Propoxyphene (From DARVON-N) (Severe, CATATONIC 10/10/16) Physical Exam Vital Signs / I&Os Vital Signs Date Time Temp Pulse Resp B/P Pulse O2 O2 Flow FiO2 Ox Delivery Rate 10/12 0641 96.4 69 20 164/84 100 Nasal 2.0 Cannula 10/12 0314 Nasal 2.0 Cannula 10/12 0129 98.1 76 16 189/96 99 Nasal 2.0 Cannula 10/118 98.1 83 20 178/84 98 Nasal 2.0 Cannula 10/11 2016 2.0 10/11 1918 98.2 81 16 160/80 100 Nasal 2.0 Cannula 10/11 1539 98.4 84 20 154/87 98 Room Air 10/11 1110 97.5 66 20 175/86 96 Room Air 10/11 0900 Nasal 3.0 Cannula 10/11 0747 97.7 81 16 155/91 98 Nasal 3.0 Cannula I&O 10/12 0000 10/11 1600 10/11 0800 Intake Total 650 1615 1265 Output Total 806 1579 450 Balance -156 36 815 General Appearance Alert, Oriented X3, Cooperative, No acute distress Lungs Clear to auscultation Cardiovascular Regular rate and rhythm, Normal S1 and S2 Abdomen Normal bowel sounds, Soft, No tenderness Extremities No cyanosis, No clubbing Neurological Grossly normal. Psych/Mental Status Mental status normal, Mood normal LAB Results Laboratory Tests 10/12 10/12 0542 0500 Chemistry Plasma Sodium (136 - 145 mmol/L) 142 Plasma Potassium (3.5 - 5.1 mmol/L) 4.0 Plasma Chloride (98 - 107 mmol/L) 107 CO2 (Enzymatic) (21 - 32 mmol/L) 29 BUN (7 - 18 mg/dL) 8 Creatinine (0.6 - 1.3 mg/dL) 0.7 Est GFR ( Amer) (mL/min) >60 Est GFR (Non-Af Amer) (mL/min) >60 Glucose (70 - 110 mg/dL) 132 Plasma Calcium (8.5 - 10.1 mg/dL) 8.6 Urines Urine Color YELLOW Urine Appearance CLEAR Urine pH (5.0 - 8.0) 6.0 Ur Specific [place] (1.010 - 1.030) 1.010 Urine Protein (NEGATIVE) NEGATIVE Urine Ketones (NEGATIVE) NEGATIVE Urine Blood (NEGATIVE) 2+ Urine Nitrite (NEGATIVE) NEGATIVE Urine Bilirubin (NEGATIVE) NEGATIVE Urine Urobilinogen (0.2 - 1.0 EU/dL) 0.2 Ur Leukocyte Esterase (NEGATIVE) NEGATIVE Urine RBC (0 - 1 rbc/hpf) 3-5 Urine WBC (0 - 1 wbc/hpf) 0-1 Ur Epithelial Cells (0 - 5 EPI/hpf) 0-1 Urine Bacteria (NONE SEEN) NONE SEEN Urine Glucose (NEGATIVE) NEGATIVE Urine Comment CULT NOT INDICATED 10/11 1924 Urines Urine Color YELLOW Urine Appearance CLEAR Urine pH (5.0 - 8.0) 6.0 Ur Specific [place] (1.010 - 1.030) <= 1.005 Urine Protein (NEGATIVE) NEGATIVE Urine Ketones (NEGATIVE) NEGATIVE Urine Blood (NEGATIVE) 2+ Urine Nitrite (NEGATIVE) NEGATIVE Urine Bilirubin (NEGATIVE) NEGATIVE Urine Urobilinogen (0.2 - 1.0 EU/dL) 1.0 Ur Leukocyte Esterase (NEGATIVE) NEGATIVE Urine RBC (0 - 1 rbc/hpf) 5-10 Urine WBC (0 - 1 wbc/hpf) NONE SEEN Ur Epithelial Cells (0 - 5 EPI/hpf) 0-1 Urine Bacteria (NONE SEEN) NONE SEEN Urine Glucose (NEGATIVE) NEGATIVE Urine Comment CULT NOT INDICATED Microbiology Date/Time Procedure - Status Source Growth 10/11 2054 Escherichia coli Shiga Toxins EIA - COLB STOOL 10/11 2054 Campylobacter Culture - COLB STOOL 10/11 2054 Salmonella/Shigella Culture - COLB STOOL Assessment and Plan Problem List 1. Viral gastroenteritis Plan -Resolved. -Discharged to assisted living today. 2. Dehydration Status Acute Onset Date 10/10/16 Plan -resolved -BUN/creatinine within normal limits -Discharge to assisted living. 3. COPD (chronic obstructive pulmonary disease) Plan -Stable -Combivent Respimat one inhalation 4 times a day on discharge -Oxygen 2 L/m via nasal cannula -Follow up with PCP this week with scheduling of outpatient PFTs. -Discharge to assisted living today 4. Weakness Plan -Much improved -Ambulating without problems -Ready for discharge to assisted living-independent section -Discharge today Current status: Fair, improved Anticipated discharge date: Today Anticipated discharge placement: Assisted living Patient care time: Time spent in chart review, patient interview, physical exam, CPOE, and care documentation: Greater than 30 minutes Visit to patient today: 1 Complexity of care: Moderate For other recommendations regarding discharge diet, activity, followup, and discharge medications please see the patient's discharge instructions. Greater than 30 min. was spent in the patient's discharge preparation including discharge interview and physical examination, progress note, discharge instructions, and discharge summary E&M Codes Discharge: Observation - All/[id number]
--- NOTE | 2016-10-12 07:40 | Discharge Summary ---
Discharge Summary Report Admit Date 10/10/16 Discharge Date 10/12/16 Admission Diagnosis 1. Viral gastroenteritis 2. Dehydration 3. Weakness Discharge Diagnosis 1. Viral gastroenteritis 2. Dehydration 3. Weakness 4. COPD Brief History The patient is an 81-year-old white female with a significant past medical history of chronic back pain, macular degeneration, nephritis, hypertension, depression, who presented to [facility] emergency department secondary to a history of nausea, vomiting, and weakness. [facility] ER evaluation was consistent with probable viral gastroenteritis with associated nausea vomiting and dehydration causing weakness and inability to walk. Secondary to the above, the patient was admitted by Shawn Piedra M.D. for further evaluation and treatment. For other history present illness, past medical history, family history, social history, review of systems, and admission physical examination please see the patient's history and physical examination and ER visit note in the patient's medical record. Hospital Course The following problems and their management were noted during the patient's hospitalization: 1. Viral gastroenteritis The patient presented with findings of viral gastroenteritis. Symptoms resolved early in the patient's hospital course. She was taking full liquid diet well without problems. Advanced to regular diet on discharge. Patient's dehydration was resolved at the time of discharge. She was up ambulating without problems. Outpatient follow-up with PCP 2. Dehydration The patient presented with findings of dehydration. This resolved prior to her discharge. BUN and creatinine were within normal limits on discharge. Patient taking well orally. 3. Weakness The patient was diffusely weak on admission. She was unable to care for self. At time of discharge this had resolved. She was up and living well without problems. Outpatient follow-up with PCP. Stable for discharge to independent living section of assisted living facility 4. COPD The patient has a history of COPD. This is O2 dependent. She was placed on Combivent MDI during her hospital stay. She was discharged on Combivent Respimat one inhalation every 6 hours. O2 at 2 L/m via nasal cannula. Recommend outpatient follow-up with PCP and scheduling of pulmonary function testing. Lab/Imaging Laboratory Tests 10/12 10/12 0542 [id number] Chemistry Plasma Sodium (136 - 145 mmol/L) 142 Plasma Potassium (3.5 - 5.1 mmol/L) 4.0 Plasma Chloride (98 - 107 mmol/L) 107 CO2 (Enzymatic) (21 - 32 mmol/L) 29 BUN (7 - 18 mg/dL) 8 Creatinine (0.6 - 1.3 mg/dL) 0.7 Est GFR ( Amer) (mL/min) >60 Est GFR (Non-Af Amer) (mL/min) >60 Glucose (70 - 110 mg/dL) 132 Plasma Calcium (8.5 - 10.1 mg/dL) 8.6 Urines Urine Color YELLOW Urine Appearance CLEAR Urine pH (5.0 - 8.0) 6.0 Ur Specific Byron (1.010 - 1.030) 1.010 Urine Protein (NEGATIVE) NEGATIVE Urine Ketones (NEGATIVE) NEGATIVE Urine Blood (NEGATIVE) 2+ Urine Nitrite (NEGATIVE) NEGATIVE Urine Bilirubin (NEGATIVE) NEGATIVE Urine Urobilinogen (0.2 - 1.0 EU/dL) 0.2 Ur Leukocyte Esterase (NEGATIVE) NEGATIVE Urine RBC (0 - 1 rbc/hpf) 3-5 Urine WBC (0 - 1 wbc/hpf) 0-1 Ur Epithelial Cells (0 - 5 EPI/hpf) 0-1 Urine Bacteria (NONE SEEN) NONE SEEN Urine Glucose (NEGATIVE) NEGATIVE Urine Comment CULT NOT INDICATED 10/11 1924 Urines Urine Color YELLOW Urine Appearance CLEAR Urine pH (5.0 - 8.0) 6.0 Ur Specific Byron (1.010 - 1.030) <= 1.005 Urine Protein (NEGATIVE) NEGATIVE Urine Ketones (NEGATIVE) NEGATIVE Urine Blood (NEGATIVE) 2+ Urine Nitrite (NEGATIVE) NEGATIVE Urine Bilirubin (NEGATIVE) NEGATIVE Urine Urobilinogen (0.2 - 1.0 EU/dL) 1.0 Ur Leukocyte Esterase (NEGATIVE) NEGATIVE Urine RBC (0 - 1 rbc/hpf) 5-10 Urine WBC (0 - 1 wbc/hpf) NONE SEEN Ur Epithelial Cells (0 - 5 EPI/hpf) 0-1 Urine Bacteria (NONE SEEN) NONE SEEN Urine Glucose (NEGATIVE) NEGATIVE Urine Comment CULT NOT INDICATED Microbiology Date/Time Procedure - Status Source Growth 10/11 2054 Escherichia coli Shiga Toxins EIA - COLB STOOL 10/11 2054 Campylobacter Culture - COLB STOOL 10/11 2054 Salmonella/Shigella Culture - COLB STOOL Discharge Instructions/Meds For other recommendations regarding discharge diet, activity, followup, and discharge medications please see the patient's discharge instructions. Discharge condition: Fair, improved Greater than 30 min. was spent in the patient's discharge preparation including discharge interview and physical examination, progress note, discharge instructions, and discharge summary The patient was interviewed and examined on the day of discharge. E&M Codes Discharge: Observation - All/[id number]
--- NOTE | 2016-10-12 10:09 | Provider's Discharge Care Plan ---
Problem, Goal, Plan Problem List 1. Viral gastroenteritis Goals: Improve disease control, Prevent disease progress Instructions: Follow up as directed, Take meds as directed 2. COPD (chronic obstructive pulmonary disease) Goals: Improve disease control, Improve function, Improved health/wellness, Prevent disease progress Instructions: Follow up as directed, Take meds as directed, Schedule follow up to discuss pulmonary function testing with family physician.
[2016-10-12] MEDS ORDERED: COMBIVENT RESPIMAT IN (10:10)
[2016-10-12] MEDS ORDERED: O2 IN (10:11)
[2016-10-12 10:20] VITALS: BP 164/84
== END 2016-10-12 11:00 | disposition home or self-care (01) ==
LOC: ED SRH 14:36 → TRANS SRH 19:12 → ACUTE3 SRH 21:20
PROVIDERS: ADMIT Emergency Medicine
DX: E86.0 Dehydration (principal); A08.4 Viral intestinal infection, unspecified; R53.1 Weakness; J44.9 Chronic obstructive pulmonary disease, unspecified; I10 Essential (primary) hypertension
CPT/HCPCS: 29242; 29247; 29263; 90004; 90047; 90074; 90100; 90616; 91320; 91400; 92610; 92720; 92760; 92761; 92762; 92763; 92764; 92765; 92766; 92767; 93004; 94001; 94060; 95059

== ENCOUNTER 2016-11-27 02:39 | Emergency (ER) | payer MEDICARE ==
[~2016-11-27 02:39] MED LIST: CITALOPRAM HYDR20 MG PO; COMBIVENT RESPIMAT IN; LISINOPRIL10 MG PO; O2 IN; VITAMIN D-31000 UNIT PO
--- NOTE | 2016-11-27 04:03 | ED NURSING NOTES ---
Clinical Report - [facility] [address] [place] [address] 11/27/2016 2:42 Patient: CHRISTINA JONES TRIAGE Triage time 02:44 Nov 27 2016. Acuity: LEVEL 3. Chief Complaint: "FLU" and BODY ACHES. 02:50 11/27/16. SEPSIS SCREEN: Sepsis Screen. Negative (no infection suspected/documented). --02:50 InderbitzenMarguerite R.N. 02:44 11/27/16. BP: 174/79. HR: 106. RR: 20. O2 saturation: 94%. Temp: 98.6 F. Pain level now: 03/29. --02:50 Marguerite Wilks R.N. Weight: 81.6 kg stated. Height/Length: 62 inches Per Patient. BMI: 32.9. --02:42 InderbitMarguerite villalpando R.N. Medications Lisinopril Oral. --02:45 Marguerite Wilks R.N. Antidepressant. --02:46 Marguerite Wilks R.N. Eye Drops. --02:50 Marguerite Wilks R.N. Allergies Codeine. --02:45 Marguerite Wilks R.N. Medication/allergy information source: the patient. --02:50 Marguerite Wilks R.N. History Arrived by EMS. Historian: patient. Onset was abrupt. (6 PM ). ( Describes sudden onset of head congestion and body aches). She has had chills, sinus pain and a headache. She has not had fatigue. Treatment TECHNICAL SYSTEMS ARCHITECT: None. PAST MEDICAL HX: Immunizations: seasonal influenza. SOCIAL HX: Smoker- current status unknown (quit 10 years ago). No alcohol use or drug use. No recent travel. No known contact with a sick individual. ABUSE ASSESSMENT: No report of abuse. NUTRITIONAL RISK ASSESSMENT: The nutritional risk assessment revealed no deficiencies. LEARNING NEEDS ASSESSMENT: The learning needs assessment revealed no barriers. FUNCTIONAL ASSESSMENT: Functional assessment performed: independent with the activities of daily living; uses walker and cane- this mobility impairment is an ongoing problem; has poor vision in both eyes- this visual impairment is an ongoing problem. No communication barrier. SKIN INTEGRITY ASSESSMENT: Skin integrity risk assessment completed. No skin integrity risk identified. --02:50 Marguerite Wilks R.N. PROBLEMS: Contusion. COPD - Chronic Obstructive Pulmonary Disease. Hypertension. --02:47 Marguerite Wilks R.N. Sciatica. Macular Degeneration. Macular . --02:50 Marguerite Wilks R.N. ADDITIONAL SURGERIES: Back Surgery. Hysterectomy. --02:47 Marguerite Wilks R.N. Interventions ID band on patient. --02:50 Marguerite Wilks R.N. NURSING PROGRESS NOTES 02:51 11/27/16. Patient ready for evaluation- ED physician notified. --02:51 Marguerite Wilks R.N. 02:51 11/27/16. The initial plan of care for this patient includes an assessment with efforts to address the presence of pain; hydration needs. This plan of care was discussed with the patient. Reassurance given. Two patient identifiers checked. Call light placed in reach. Side rails up x 2. Bed placed in lowest position. Brakes of bed on. --02:51 Marguerite Wilks R.N. 02:54 11/27/16. Patient ID band checked for patient name and birthdate: patient confirmed. Flu swab obtained by RN via nasal swab. Labeled in the presence of the patient. --02:54 Marguerite Wilks R.N. ( Pt was given a bedside commode and was assisted onto the commode. Pt was placed in a dry attends. Pt was placed back and in bed and was given a warm blanket. Urine was sent to lab.). --03:56 Rafy Robb R.N. 05:07 11/27/16. The patient is calm and resting quietly. 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 ETE 1 hour.). --05:07 Marguerite Wilks R.N. 05:08 11/27/16. BP: 156/78. HR: 80. RR: 16. O2 saturation: 95%. Temp: 98.8 F. Pain level now 02/27. --05:08 Marguerite Wilks R.N. DISPOSITION / DISCHARGE 05:09 11/27/16. Condition at departure: unchanged and stable. The goals identified in the patient's plan of care were met. No learning barriers present. Discharge instructions provided and reviewed with the patient. Reviewed medication(s) side effects, precautions, dosing and course information. Prescription(s) given to the patient. Patient verbalized understanding. Written instructions provided in Trinidadian. --05:09 Marguerite Wilks R.N. 05:07 11/27/16. BP: 156/78. HR: 80. RR: 16. O2 saturation: 95%. Temp: 98.8 F. Pain level now 02/27. 02:44 11/27/16. BP: 174/79. HR: 106. RR: 20. O2 saturation: 94%. Temp: 98.6 F. Pain level now: 03/29. --05:09 Marguerite Wilks R.N. Departure time: 05:Nov 27 2016. --05:26 Marguerite Wilsk R.N. 05:26 11/27/16. The patient was discharged home and accompanied by family. She left the Emergency Department in a wheelchair and via private vehicle. Family member driving. --05:26 Marguerite Wilks R.N. Locked/Released at 11/27/2016 5:26 by Marguerite Wilks R.N.
--- NOTE | 2016-11-27 04:03 | ED NURSING NOTES ---
Clinical Report - [facility] [address] [place] [address] 11/27/2016 2:42 Patient: CHRISTINA JONES TRIAGE Triage time 02:44 Nov 27 2016. Acuity: LEVEL 3. Chief Complaint: "FLU" and BODY ACHES. 02:50 11/27/16. SEPSIS SCREEN: Sepsis Screen. Negative (no infection suspected/documented). --02:50 InderbitzenMarguerite R.N. 02:44 11/27/16. BP: 174/79. HR: 106. RR: 20. O2 saturation: 94%. Temp: 98.6 F. Pain level now: 03/29. --02:50 Marguerite Wilks R.N. Weight: 81.6 kg stated. Height/Length: 62 inches Per Patient. BMI: 32.9. --02:42 InderbitMarguerite villalpando R.N. Medications Lisinopril Oral. --02:45 Marguerite Wilks R.N. Antidepressant. --02:46 Marguerite Wilks R.N. Eye Drops. --02:50 Marguerite Wilks R.N. Allergies Codeine. --02:45 Marguerite Wilks R.N. Medication/allergy information source: the patient. --02:50 Marguerite Wilks R.N. History Arrived by EMS. Historian: patient. Onset was abrupt. (6 PM ). ( Describes sudden onset of head congestion and body aches). She has had chills, sinus pain and a headache. She has not had fatigue. Treatment UPTWIST SPINNER: None. PAST MEDICAL HX: Immunizations: seasonal influenza. SOCIAL HX: Smoker- current status unknown (quit 10 years ago). No alcohol use or drug use. No recent travel. No known contact with a sick individual. ABUSE ASSESSMENT: No report of abuse. NUTRITIONAL RISK ASSESSMENT: The nutritional risk assessment revealed no deficiencies. LEARNING NEEDS ASSESSMENT: The learning needs assessment revealed no barriers. FUNCTIONAL ASSESSMENT: Functional assessment performed: independent with the activities of daily living; uses walker and cane- this mobility impairment is an ongoing problem; has poor vision in both eyes- this visual impairment is an ongoing problem. No communication barrier. SKIN INTEGRITY ASSESSMENT: Skin integrity risk assessment completed. No skin integrity risk identified. --02:50 Marguerite Wilks R.N. PROBLEMS: Contusion. COPD - Chronic Obstructive Pulmonary Disease. Hypertension. --02:47 Marguerite Wilks R.N. Sciatica. Macular Degeneration. Macular . --02:50 Marguerite Wilks R.N. ADDITIONAL SURGERIES: Back Surgery. Hysterectomy. --02:47 Marguerite Wilks R.N. Interventions ID band on patient. --02:50 Marguerite Wilks R.N. NURSING PROGRESS NOTES 02:51 11/27/16. Patient ready for evaluation- ED physician notified. --02:51 Marguerite Wilks R.N. 02:51 11/27/16. The initial plan of care for this patient includes an assessment with efforts to address the presence of pain; hydration needs. This plan of care was discussed with the patient. Reassurance given. Two patient identifiers checked. Call light placed in reach. Side rails up x 2. Bed placed in lowest position. Brakes of bed on. --02:51 Marguerite Wikls R.N. 02:54 11/27/16. Patient ID band checked for patient name and birthdate: patient confirmed. Flu swab obtained by RN via nasal swab. Labeled in the presence of the patient. --02:54 Marguerite Wilks R.N. ( Pt was given a bedside commode and was assisted onto the commode. Pt was placed in a dry attends. Pt was placed back and in bed and was given a warm blanket. Urine was sent to lab.). --03:56 Rafy Robb R.N. 05:07 11/27/16. The patient is calm and resting quietly. 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 ETE 1 hour.). --05:07 Marguerite Wilks R.N. 05:08 11/27/16. BP: 156/78. HR: 80. RR: 16. O2 saturation: 95%. Temp: 98.8 F. Pain level now 02/27. --05:08 Marguerite Wilks R.N. DISPOSITION / DISCHARGE 05:09 11/27/16. Condition at departure: unchanged and stable. The goals identified in the patient's plan of care were met. No learning barriers present. Discharge instructions provided and reviewed with the patient. Reviewed medication(s) side effects, precautions, dosing and course information. Prescription(s) given to the patient. Patient verbalized understanding. Written instructions provided in Liberian. --05:09 Marguerite Wilks R.N. 05:07 11/27/16. BP: 156/78. HR: 80. RR: 16. O2 saturation: 95%. Temp: 98.8 F. Pain level now 02/27. 02:44 11/27/16. BP: 174/79. HR: 106. RR: 20. O2 saturation: 94%. Temp: 98.6 F. Pain level now: 03/29. --05:09 Marguerite Wilks R.N. Departure time: 05:Nov 27 2016. --05:26 Marguerite Wilks R.N. 05:26 11/27/16. The patient was discharged home and accompanied by family. She left the Emergency Department in a wheelchair and via private vehicle. Family member driving. --05:26 Marguerite Wilks R.N. Locked/Released at 11/27/2016 5:26 by Marguerite Wilks R.N.
--- NOTE | 2016-11-27 04:03 | ED ORDER SUMMARY ---
..... Patient: CHRISTINA JONES OrderSheet [facility] VisitID: [id number] [address] [place] [address] 81y, F Registration Date/Time: 11/27/2016 ORDER SHEET Weight: 81.6 kg (stated) Allergies: Codeine GENERAL ORDERS: Rapid Influenza Screen (Nasal Pharyngeal) (nasal swab) Urgent (02:51 11/27/2016 Clark Chaudhari verbal order read back to Wanda CAMACHO) (2:55 Miriam VerdeNSameer) MEDICATION ORDERS: IV FLUIDS: ORDER SHEET NOTES: [Electronically signed by Marguerite Wilks R.N. (05:26 11/27/2016)] [Electronically signed by Young Whitehead MD (07:49 11/27/2016)] [Electronically locked/signed by Marguerite Wilks R.N. (05:26 11/27/2016)]
--- NOTE | 2016-11-27 04:03 | ED ORDER SUMMARY ---
..... Patient: CHRISTINA JONES OrderSheet [facility] VisitID: [id number] [address] [place] [address] 81y, F Registration Date/Time: 11/27/2016 ORDER SHEET Weight: 81.6 kg (stated) Allergies: Codeine GENERAL ORDERS: Rapid Influenza Screen (Nasal Pharyngeal) (nasal swab) Urgent (02:51 11/27/2016 Clark Chaudhari verbal order read back to Wanda CAMACHO) (2:55 Miriam VerdeNSameer) MEDICATION ORDERS: IV FLUIDS: ORDER SHEET NOTES: [Electronically signed by Marguerite Wilks R.N. (05:26 11/27/2016)] [Electronically signed by Young Whitehead MD (07:49 11/27/2016)] [Electronically locked/signed by Marguerite Wilks R.N. (05:26 11/27/2016)]
--- NOTE | 2016-11-27 04:03 | ED CLINICAL REPORT ---
Clinical Report - Physicians[facility] Levels [facility] [address] [place] [address] 11/27/2016 2:42 Patient: CHRISTINA JONES Time Seen: 03:01. Arrived- By ambulance. Historian- patient and EMS personnel. HISTORY OF PRESENT ILLNESS Chief Complaint: COUGH and SINUS PAIN. This started about 2 days ago and is still present. It was gradual in onset and has been intermittent and waxing/waning. The illness is described as moderate. The patient has had a mild cough productive of scant amounts of clear sputum. No sputum production, fever or chills. She has had nasal congestion, sinus pressure, muscle aches and a nasal discharge. REVIEW OF SYSTEMS No chills, fatigue, fever, sweats or calf pain. No chest pain, difficulty breathing, pedal edema, palpitations or abdominal pain. No constipation, diarrhea, nausea, vomiting or urinary problems. The patient has had muscle aches. All systems otherwise negative, except as recorded above. PAST HISTORY Problems: Sciatica. Macular Degeneration. Contusion. COPD - Chronic Obstructive Pulmonary Disease. Hypertension. Additional Surgeries: Back Surgery. Hysterectomy. Medications: Eye Drops. Antidepressant. Lisinopril Oral. Allergies: Codeine. SOCIAL HISTORY Former smoker. No alcohol use or drug use. FAMILY HISTORY No significant family medical history. ADDITIONAL NOTES The nursing notes have been reviewed. PHYSICAL EXAM Vital Signs: 11/27/2016 02:44 BP: 174/79. HR: 106. RR: 20. O2 saturation: 94%. Temp: 98.6 F. Pain level now: 10. Have been reviewed. Appearance: Alert. No acute distress. Head: Tenderness present to percussion/palpation of the sinuses: mild right and left maxillary tenderness. Eyes: Pupils equal, round and reactive to light. ENT: Ears normal. Minimal, thin, clear nasal discharge present. Pharynx normal. Uvula midline. Neck: Normal inspection. Neck supple. No meningeal signs or lymphadenopathy. CVS: Normal heart rate and rhythm. Heart sounds normal. Respiratory: No respiratory distress. Breath sounds normal. Abdomen: Soft and nontender. No organomegaly. Back: Normal inspection. Skin: Skin warm and dry. Normal skin color. No rash. Normal skin turgor. Extremities: Extremities exhibit normal ROM. No calf tenderness. No lower extremity edema. LABS, X-RAYS, AND EKG Laboratory Tests: Rapid Influenza Screen: (CONSUELO: 11/27/2016 02:50) ( [id number] 11/27/2016 03:32) Final results SPECIMEN DESCRIPTION: NASAL SWAB Test Result Flag Units (Reference) RAPID INFLUENZA SCREEN CALLED TO: NA -- DATE: 11/27/16 INFLUENZA A: NEGATIVE SCREEN FOR INFLUENZA A INFLUENZA B: NEGATIVE SCREEN FOR INFLUENZA B . PROGRESS AND PROCEDURES Patient/family counseled. Old medical records reviewed. Disposition: Discharged. Condition: stable. CLINICAL IMPRESSION Acute rhinitis and maxillary sinusitis. INSTRUCTIONS Drink plenty of fluids. Warnings: GENERAL WARNINGS: Return or contact your physician immediately if your condition worsens or changes unexpectedly, if not improving as expected, or if other problems arise. Your Current Medications: CONTINUE TAKING THE FOLLOWING MEDICATIONS: Antidepressant*. Eye Drops*. Lisinopril Oral. Prescription Medications: Zithromax 250 mg tablets: take 2 orally today, followed by 1 daily for the next 4 days. No refills. Substitution is permissible. (Hold this prescription for 1 week. If your symptoms persist at that time you may initiate its use as discussed) Follow-up: Follow up with your doctor Li Martinez in seven days if not better. Understanding of the discharge instructions verbalized by patient. (Electronically signed by Young Whitehead MD 11/27/2016 7:49)
--- NOTE | 2016-11-27 07:49 | ED MAR SUMMARY ---
..... Medication Administration Record [facility] [address], [place] [id number] Patient: CHRISTINA JONES Visit ID: [id number] 81y, F Weight: 81.6 kg Height/Length: 62 in BMI: 32.9 ALLERGIES: Codeine
--- NOTE | 2016-11-27 07:49 | ED MAR SUMMARY ---
..... Medication Administration Record [facility] [address] [place] [place], [place] [id number] Patient: CHRISTINA JONES Visit ID: [id number] 81y, F Weight: 81.6 kg Height/Length: 62 in BMI: 32.9 ALLERGIES: Codeine
--- NOTE | 2016-11-27 07:49 | ED DISCHARGE INSTRUCTIONS ---
Patient: CHRISTINA JONES General Instructions [facility] VisitID: [id number] [place] [address] 81y, F Registration Date/Time: 11/27/2016 Acute rhinitis and maxillary sinusitis. INSTRUCTIONS Drink plenty of fluids. Warnings: GENERAL WARNINGS: Return or contact your physician immediately if your condition worsens or changes unexpectedly, if not improving as expected, or if other problems arise. Your Current Medications: CONTINUE TAKING THE FOLLOWING MEDICATIONS: Antidepressant*. Eye Drops*. Lisinopril Oral. Prescription Medications: Zithromax 250 mg tablets: take 2 orally today, followed by 1 daily for the next 4 days. No refills. Substitution is permissible. (Hold this prescription for 1 week. If your symptoms persist at that time you may initiate its use as discussed) Follow-up: Follow up with your doctor Li Martinez in seven days if not better. Understanding of the discharge instructions verbalized by patient. ADDITIONAL INFORMATION Viral Respiratory Illness [Adult] You have an Upper Respiratory Illness (URI) caused by a virus. This illness is contagious during the first few days. It is spread through the air by coughing and sneezing or by direct contact (touching the sick person and then touching your own eyes, nose or mouth). Most viral illnesses go away within 7-10 days with rest and simple home remedies. Sometimes, the illness may last for several weeks. Antibiotics will not kill a virus and are generally not prescribed for this condition. Home Care: 1) If symptoms are severe, rest at home for the first 2-3 days. When you resume activity, don't let yourself get too tired. 2) Avoid being exposed to cigarette smoke (yours or others). 3) Tylenol (acetaminophen) or ibuprofen (Advil, Motrin) will help fever, muscle aching and headache. (Persons under 18 with fever should not take aspirin since this may cause liver damage.) 4) Your appetite may be poor, so a light diet is fine. Avoid dehydration by drinking 6-8 glasses of fluids per day (water, soft drinks, juices, tea, soup). Extra fluids will help loosen secretions in the nose and lungs. 5) Fvnz-mie-ehbpfti cold medicines will not shorten the length of time youre sick, but they may be helpful for the following symptoms: cough (Robitussin DM); sore throat (Chloraseptic lozenges or spray); nasal and sinus congestion (Actifed, Sudafed, Chlortrimeton). Follow Up with your doctor or as advised if you dont improve over the next week. Get Prompt Medical Attention if any of the following occur: -- Cough with lots of colored sputum (mucus) or blood in your sputum -- Chest pain, shortness of breath, wheezing or have trouble breathing -- Severe headache; face, neck or ear pain -- Fever over 100.4 F (38.0 C) for more than three days -- You cant swallow due to throat pain Azithromycin Oral tablet What is this medicine? AZITHROMYCIN (az ith letty MONTOYA sin) is a macrolide antibiotic. It is used to treat or prevent certain kinds of bacterial infections. It will not work for colds, flu, or other viral infections. How should I use this medicine? Take this medicine by mouth with a full glass of water. Follow the directions on the prescription label. The tablets can be taken with food or on an empty stomach. If the medicine upsets your stomach, take it with food. Take your medicine at regular intervals. Do not take your medicine more often than directed. Take all of your medicine as directed even if you think your are better. Do not skip doses or stop your medicine early. Talk to your denture finisher regarding the use of this medicine in children. Special care may be needed. What side effects may I notice from receiving this medicine? Side effects that you should report to your doctor or health zoo caretaker as soon as possible: allergic reactions like skin rash, itching or hives, swelling of the face, lips, or tongue confusion, nightmares or hallucinations dark urine difficulty breathing hearing loss irregular heartbeat or chest pain pain or difficulty passing urine redness, blistering, peeling or loosening of the skin, including inside the mouth white patches or sores in the mouth yellowing of the eyes or skin Side effects that usually do not require medical attention (report to your doctor or health zoo caretaker if they continue or are bothersome): diarrhea dizziness, drowsiness headache stomach upset or vomiting tooth discoloration vaginal irritation What may interact with this medicine? Do not take this medicine with any of the following medications: lincomycin This medicine may also interact with the following medications: amiodarone antacids cyclosporine digoxin magnesium nelfinavir phenytoin warfarin What if I miss a dose? If you miss a dose, take it as soon as you can. If it is almost time for your next dose, take only that dose. Do not take double or extra doses. Where should I keep my medicine? Keep out of the reach of children. Store at room temperature between 15 and 30 degrees C (59 and 86 degrees F). Throw away any unused medicine after the expiration date. What should I tell my health care provider before I take this medicine? They need to know if you have any of these conditions: kidney disease liver disease irregular heartbeat or heart disease an unusual or allergic reaction to azithromycin, erythromycin, other macrolide antibiotics, foods, dyes, or preservatives or trying to get breast-feeding What should I watch for while using this medicine? Tell your doctor or health zoo caretaker if your symptoms do not improve. Do not treat diarrhea with over the counter products. Contact your doctor if you have diarrhea that lasts more than 2 days or if it is severe and watery. This medicine can make you more sensitive to the sun. Keep out of the sun. If you cannot avoid being in the sun, wear protective clothing and use sunscreen. Do not use sun lamps or tanning beds/booths. You have been given the following additional information: Uri, Viral, No Abx (Adult) Azithromycin Oral tablet (Electronically signed by Young Whitehead MD 11/27/2016 7:49)
--- NOTE | 2016-11-27 07:49 | ED MED RECONCILIATION SUMMARY ---
Patient: CHRISTINA JONES Medication Reconciliation Report [facility] VisitID: [id number] [address] [place] [address] 81y, F Registration Date/Time: 11/27/2016 Weight: 81.6 kg Height/Length: 62 in. BMI: 32.9 ALLERGIES: Codeine The patient's Home Medications are listed below: CONTINUE TAKING THE FOLLOWING MEDICATIONS: Antidepressant Eye Drops Lisinopril Oral The source(s) of the original Home Medication information: patient The following Medications were given to the patient in the Emergency Department: None. The following Medications were prescribed to the patient: Zithromax 250 mg tablets: take 2 orally today, followed by 1 daily for the next 4 days. No refills. Substitution is permissible.(Hold this prescription for 1 week. If your symptoms persist at that time you may initiate its use as discussed) -- Young Whitehead MD
--- NOTE | 2016-11-27 07:49 | ED DISCHARGE INSTRUCTIONS ---
Patient: CHRISTINA JONES General Instructions [facility] VisitID: [id number] [place] [address] 81y, F Registration Date/Time: 11/27/2016 Acute rhinitis and maxillary sinusitis. INSTRUCTIONS Drink plenty of fluids. Warnings: GENERAL WARNINGS: Return or contact your physician immediately if your condition worsens or changes unexpectedly, if not improving as expected, or if other problems arise. Your Current Medications: CONTINUE TAKING THE FOLLOWING MEDICATIONS: Antidepressant*. Eye Drops*. Lisinopril Oral. Prescription Medications: Zithromax 250 mg tablets: take 2 orally today, followed by 1 daily for the next 4 days. No refills. Substitution is permissible. (Hold this prescription for 1 week. If your symptoms persist at that time you may initiate its use as discussed) Follow-up: Follow up with your doctor Li Martinez in seven days if not better. Understanding of the discharge instructions verbalized by patient. ADDITIONAL INFORMATION Viral Respiratory Illness [Adult] You have an Upper Respiratory Illness (URI) caused by a virus. This illness is contagious during the first few days. It is spread through the air by coughing and sneezing or by direct contact (touching the sick person and then touching your own eyes, nose or mouth). Most viral illnesses go away within 7-10 days with rest and simple home remedies. Sometimes, the illness may last for several weeks. Antibiotics will not kill a virus and are generally not prescribed for this condition. Home Care: 1) If symptoms are severe, rest at home for the first 2-3 days. When you resume activity, don't let yourself get too tired. 2) Avoid being exposed to cigarette smoke (yours or others). 3) Tylenol (acetaminophen) or ibuprofen (Advil, Motrin) will help fever, muscle aching and headache. (Persons under 18 with fever should not take aspirin since this may cause liver damage.) 4) Your appetite may be poor, so a light diet is fine. Avoid dehydration by drinking 6-8 glasses of fluids per day (water, soft drinks, juices, tea, soup). Extra fluids will help loosen secretions in the nose and lungs. 5) [id number]-pmapthj cold medicines will not shorten the length of time youre sick, but they may be helpful for the following symptoms: cough (Robitussin DM); sore throat (Chloraseptic lozenges or spray); nasal and sinus congestion (Actifed, Sudafed, Chlortrimeton). Follow Up with your doctor or as advised if you dont improve over the next week. Get Prompt Medical Attention if any of the following occur: -- Cough with lots of colored sputum (mucus) or blood in your sputum -- Chest pain, shortness of breath, wheezing or have trouble breathing -- Severe headache; face, neck or ear pain -- Fever over 100.4 F (38.0 C) for more than three days -- You cant swallow due to throat pain Azithromycin Oral tablet What is this medicine? AZITHROMYCIN (az ith letty MONTOYA sin) is a macrolide antibiotic. It is used to treat or prevent certain kinds of bacterial infections. It will not work for colds, flu, or other viral infections. How should I use this medicine? Take this medicine by mouth with a full glass of water. Follow the directions on the prescription label. The tablets can be taken with food or on an empty stomach. If the medicine upsets your stomach, take it with food. Take your medicine at regular intervals. Do not take your medicine more often than directed. Take all of your medicine as directed even if you think your are better. Do not skip doses or stop your medicine early. Talk to your cover stripper regarding the use of this medicine in children. Special care may be needed. What side effects may I notice from receiving this medicine? Side effects that you should report to your doctor or health healthcare representative as soon as possible: allergic reactions like skin rash, itching or hives, swelling of the face, lips, or tongue confusion, nightmares or hallucinations dark urine difficulty breathing hearing loss irregular heartbeat or chest pain pain or difficulty passing urine redness, blistering, peeling or loosening of the skin, including inside the mouth white patches or sores in the mouth yellowing of the eyes or skin Side effects that usually do not require medical attention (report to your doctor or health healthcare representative if they continue or are bothersome): diarrhea dizziness, drowsiness headache stomach upset or vomiting tooth discoloration vaginal irritation What may interact with this medicine? Do not take this medicine with any of the following medications: lincomycin This medicine may also interact with the following medications: amiodarone antacids cyclosporine digoxin magnesium nelfinavir phenytoin warfarin What if I miss a dose? If you miss a dose, take it as soon as you can. If it is almost time for your next dose, take only that dose. Do not take double or extra doses. Where should I keep my medicine? Keep out of the reach of children. Store at room temperature between 15 and 30 degrees C (59 and 86 degrees F). Throw away any unused medicine after the expiration date. What should I tell my health care provider before I take this medicine? They need to know if you have any of these conditions: kidney disease liver disease irregular heartbeat or heart disease an unusual or allergic reaction to azithromycin, erythromycin, other macrolide antibiotics, foods, dyes, or preservatives or trying to get breast-feeding What should I watch for while using this medicine? Tell your doctor or health healthcare representative if your symptoms do not improve. Do not treat diarrhea with over the counter products. Contact your doctor if you have diarrhea that lasts more than 2 days or if it is severe and watery. This medicine can make you more sensitive to the sun. Keep out of the sun. If you cannot avoid being in the sun, wear protective clothing and use sunscreen. Do not use sun lamps or tanning beds/booths. You have been given the following additional information: Uri, Viral, No Abx (Adult) Azithromycin Oral tablet (Electronically signed by Young Whitehead MD 11/27/2016 7:49)
--- NOTE | 2016-11-27 07:49 | ED MED RECONCILIATION SUMMARY ---
Patient: CHRISTINA JONES Medication Reconciliation Report [facility] VisitID: [id number] [address] [place] [address] 81y, F Registration Date/Time: 11/27/2016 Weight: 81.6 kg Height/Length: 62 in. BMI: 32.9 ALLERGIES: Codeine The patient's Home Medications are listed below: CONTINUE TAKING THE FOLLOWING MEDICATIONS: Antidepressant Eye Drops Lisinopril Oral The source(s) of the original Home Medication information: patient The following Medications were given to the patient in the Emergency Department: None. The following Medications were prescribed to the patient: Zithromax 250 mg tablets: take 2 orally today, followed by 1 daily for the next 4 days. No refills. Substitution is permissible.(Hold this prescription for 1 week. If your symptoms persist at that time you may initiate its use as discussed) -- Young Whitehead MD
== END 2016-11-27 05:20 | disposition home or self-care (01) ==
LOC: ED SRH 02:39
DX: J01.00 Acute maxillary sinusitis, unspecified (principal); J00 Acute nasopharyngitis [common cold]; I10 Essential (primary) hypertension; Z87.891 Personal history of nicotine dependence; Z88.5 Allergy status to narcotic agent; J44.9 Chronic obstructive pulmonary disease, unspecified; Z79.899 Other long term (current) drug therapy
CPT/HCPCS: 91400